=== PATIENT | male | born 1970 | race Asian ===

== ENCOUNTER 2019-05-26 23:52 | Emergency (ER) | payer SELFPAY ==
[~2019-05-26] VITALS: Ht 170.2 cm; Wt 77.1 kg
[~2019-05-26 23:52] MED LIST: AMLODIPINE BES2.5 MG ORAL; LOSARTAN-HCTZ1 EACH ORAL; TRICOR145 MG ORAL
[2019-05-26] MEDS ORDERED: ASPIR 8181 MG ORAL (23:58)
[2019-05-27] VITALS: BP 140/95
--- NOTE | 2019-05-27 | NUR ---
ED Nurse Note: Pt aaox4, vss, with no acute distress. Pt cooperative and well groomed. Pt ambulated to ED c/o right arm forearm pain when he moves it. Possible dislocation x 2300. last meal 1999.
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
[2019-05-27] MEDS ORDERED: HYDROCODON-ACE1 EA15 ORAL (00:28)
[2019-05-27] MEDS ORDERED: IBUPROFEN600 MG ORAL (00:28)
[2019-05-27] MEDS ORDERED: HYDROcodone/Acetamin 5/325 tab ORAL ONE (00:30)
[2019-05-27 00:45] VITALS: BP 140/95
--- NOTE | 2019-05-27 00:45 | NUR ---
ER DISCHARGE NOTE: Patient is cleared to be discharged per ERMD, pt is aox4, on room air, with stable vital signs. pt was given dc and prescription instructions, pt was able to verbalize understanding, pt id band removed without complications. pt is able to ambulate with steady gait. pt took all belongings. Pt states pain is 0/10. Pt placed in Sugar-tong splint upon discharge.
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
== END 2019-05-27 00:45 | disposition home or self-care (01) ==
LOC: EMR 05-27 00:28
DX: S52.591A Other fractures of lower end of right radius, initial encounter for closed fracture (principal); E78.00 Pure hypercholesterolemia, unspecified; I10 Essential (primary) hypertension; W03.XXXA Other fall on same level due to collision with another person, initial encounter; Y93.89 Activity, other specified; Y92.89 Other specified places as the place of occurrence of the external cause
CPT/HCPCS: 29125; 99283

== ENCOUNTER 2020-01-05 22:35 | Emergency (ER) | payer MEDICAID, OTHER ==
[~2020-01-05] VITALS: Ht 170.2 cm; Wt 79.4 kg
[~2020-01-05 22:35] MED LIST changes: +ASPIR 8181 MG ORAL; +HYDROCODON-ACE1 EA15 ORAL; +IBUPROFEN600 MG ORAL
[2020-01-05] MEDS ORDERED: XARELTO10 MG ORAL (22:52)
[2020-01-05] MEDS ORDERED: ATORVASTATIN CA20 MG ORAL (22:52)
[2020-01-05] MEDS ORDERED: AMIODARONE HCL400 M1 ORAL (22:52)
[2020-01-05] MEDS ORDERED: AMLODIPINE BESYL5 MG ORAL (22:52)
[2020-01-05] MEDS ORDERED: METOPROLOL SUCC50 MG ORAL (22:52)
[2020-01-05] MEDS ORDERED: NITRO0.4 SL (22:52)
[2020-01-05 22:58] VITALS: BP 175/111
--- NOTE | 2020-01-05 22:58 | Emergency Room Report ---
History of Present Illness General Chief Complaint: Chest Pain Source: Patient Present Illness HPI Patient presents with chief complaint of chest pain. He was sitting down to watch TV with his family. He felt pressure throughout his chest. He also helped both of his hands were sweaty at that time. He tried 2 sublingual nitroglycerin at that time with some relief. He felt no palpitations. The patient is never had a treadmill. Patient was recently evaluated with atrial fibrillation. He was started on amiodarone and a beta-payal. Also he was placed on Xarelto. 2 subsequent EKGs have revealed normal sinus rhythm. Risk factors for coronary artery disease: High cholesterol, hypertension. Patient denies diabetes, family history, smoking or obesity. The patient does drink alcohol daily. He drinks 3 glasses of scotch daily. He gets tested every 2weeks COVID-19. He got results just yesterday for an antibody test that was negative. No fevers, chills, sore throat, nausea, vomiting, diarrhea, dysuria, abdominal pain, shortness of breath, joint pain, rashes, depression, anxiety, visual changes, dizziness, headache. Allergies: Coded Allergies: No Known Allergies (Unverified , 10/13/15) COVID-19 Screening Contact w/high risk pt: No Experienced COVID-19 symptoms?: No COVID-19 Testing performed [employer]: Yes COVID-19 Screening: Negative COVID-19 COVID-19 Testing Source: 2 wks ago Patient History Past Medical History: see triage record Pertinent Family History: DM Social History: Reports: alcohol use; Denies: smoking, drug use Social History Narrative , owns a bar in [place] Reviewed Nursing Documentation: PMH: Agreed; PSxH: Agreed Nursing Documentation-PMH Hx Cardiac Problems: Yes - high cholesterol Hx Hypertension: Yes Hx Cancer: No Hx Gastrointestinal Problems: No Hx Neurological Problems: No Review of Systems All Other Systems: negative except mentioned in HPI Physical Exam Vital Signs Date Time Temp Pulse Resp B/P (MAP) Pulse Ox O2 Delivery O2 Flow Rate FiO2 01/05/20 22:40 97.9 79 18 175/111 (132) 99 Room Air Sp02 EP Interpretation: reviewed, normal General Appearance: well appearing, no apparent distress, GCS 15 Head: normocephalic Eyes: bilateral eye normal inspection, bilateral eye PERRL, bilateral eye EOMI ENT: moist mucus membranes Neck: supple Respiratory: lungs clear, normal breath sounds Cardiovascular #1: regular rate, rhythm Cardiovascular #2: 2+ radial (R) Gastrointestinal: normal inspection, normal bowel sounds, non tender, no mass, non-distended Musculoskeletal: back normal, normal range of motion, gait/station normal Neurologic: alert, oriented x3 Psychiatric: mood/affect normal Skin: no rash, warm/dry Medical Decision Making Diagnostic Impression: Primary Impression: Chest pain Qualified Codes: R07.9 - Chest pain, unspecified ER Course Patient presents with chest pain with some relief with nitroglycerin while he is on Xarelto for previous atrial fibrillation. Differential includes unstable angina, pulmonary embolus, reflux esophagitis, acute myocardial infarction amongst others. Evaluation with EKG, chest x-ray and labs. Treatment with aspirin and Pepcid. If pain continues nitroglycerin may be administered also. Although there are many factors that suggest this may be GI in origin the fact that he has 2 risk factors, had relief with nitroglycerin as disconcerting and merits close observation. EKG normal sinus rhythm normal EKG. No injury. Chest x-ray no infiltrates normal heart size. Labs remarkable for normal CBC CMP and negative troponin initially. INR is slightly prolonged as the patient is on Xarelto. Patient is pain-free. Review of results with patient. He is scheduled to be transferred to [facility] [place] for further evaluation and observation. Patient refuses to be transferred to another hospital. He states concern over possible COVID-19 exposure. Risk of explained to patient. He understands this and states he will follow-up with his own physician tomorrow. Patient signed out AGAINST MEDICAL ADVICE. Patient provided with EKG, chest x- ray and labs. Laboratory Tests Test 01/05/20 23:00 White Blood Count 7.1 K/UL (4.8-10.8) Red Blood Count 4.62 M/UL (4.70-6.10) L Hemoglobin 14.6 G/DL (14.2-18.0) Hematocrit 42.5 % (42.0-52.0) Mean Corpuscular Volume 92 FL (80-99) Mean Corpuscular Hemoglobin 31.5 PG (27.0-31.0) H Mean Corpuscular Hemoglobin Concent 34.3 G/DL (32.0-36.0) Red Cell Distribution Width 12.9 % (11.6-14.8) Platelet Count 306 K/UL (150-450) Mean Platelet Volume 6.5 FL (6.5-10.1) Neutrophils (%) (Auto) 51.1 % (45.0-75.0) Lymphocytes (%) (Auto) 34.5 % (20.0-45.0) Monocytes (%) (Auto) 8.2 % (1.0-10.0) Eosinophils (%) (Auto) 4.8 % (0.0-3.0) H Basophils (%) (Auto) 1.4 % (0.0-2.0) Prothrombin Time 14.4 SEC (9.30-11.50) H Prothrombin Time INR 1.3 (0.9-1.1) H Activated Partial Thromboplast Time 44 SEC (23-33) H Sodium Level 140 MMOL/L (136-145) Potassium Level 3.6 MMOL/L (3.5-5.1) Chloride Level 102 MMOL/L (98-107) Carbon Dioxide Level 28 MMOL/L (21-32) Anion Gap 10 mmol/L (5-15) Blood Urea Nitrogen 12 mg/dL (7-18) Creatinine 1.1 MG/DL (0.55-1.30) Estimated Glomerular Filtration Rate > 60 mL/min (>60) Glucose Level 113 MG/DL (74-106) H Calcium Level 8.9 MG/DL (8.5-10.1) Total Bilirubin 0.6 MG/DL (0.2-1.0) Aspartate Amino Transferase (AST) 24 U/L (15-37) Alanine Aminotransferase (ALT) 43 U/L (12-78) Alkaline Phosphatase 109 U/L (46-116) Total Creatine Kinase 111 U/L (26-308) Troponin I 0.000 ng/mL (0.000-0.056) Pro-B-Type Natriuretic Peptide 23 pg/mL (0-125) Total Protein 7.6 G/DL (6.4-8.2) Albumin 4.3 G/DL (3.4-5.0) Globulin 3.3 g/dL Albumin/Globulin Ratio 1.3 (1.0-2.7) Serum Alcohol < 3 mg/dL EKG Diagnostic Results Rate: normal Rhythm: NSR ST Segments: no acute changes Rhythm Strip Diag. Results EP Interpretation: yes Rhythm: NSR, no PVC's, no ectopy Chest X-Ray Diagnostic Results Chest X-Ray Diagnostic Results : Chest X-Ray Ordered: Yes # of Views/Limited/Complete: 1 View Indication: Chest Pain Interpretation: no consolidation, no effusion, no pneumothorax Impression: No acute disease Electronically Signed by: Electronically signed by Toney Rolle MD Last Vital Signs Date Time Temp Pulse Resp B/P (MAP) Pulse Ox O2 Delivery O2 Flow Rate FiO2 01/06/20 00:25 97.6 87 16 168/98 100 Room Air Status: improved Disposition: AGAINST MEDICAL ADVICE Condition: Serious Referrals: NON PHYSICIAN (PCP) Toney Rolle MD Jan 05, 2020 22:57
[2020-01-05] MEDS ORDERED: Aspirin Baby 81mg ORAL ONE (23:00)
[2020-01-05] MEDS ORDERED: Aspirin Baby 81mg ONE (23:02)
[2020-01-05 23:10] LABS: BASOPHILS % (AUTO) 1.4 % (0.0-2.0); EOSINOPHILS % (AUTO) 4.8 % (0.0-3.0); HEMATOCRIT 42.5 % (42.0-52.0); HEMOGLOBIN 14.6 G/DL (14.2-18.0); LYMPHOCYTES % (AUTO) 34.5 % (20.0-45.0); MEAN CORPUSCULAR VOLUME 92 FL (80-99); MONOCYTES % (AUTO) 8.2 % (1.0-10.0); NEUTROPHILS % (AUTO) 51.1 % (45.0-75.0); PLATELET COUNT 306 K/UL (150-450); RED BLOOD COUNT 4.62 M/UL (4.70-6.10); RED CELL DISTRIBUTION WIDTH 12.9 % (11.6-14.8); WHITE BLOOD COUNT 7.1 K/UL (4.8-10.8)
--- NOTE | 2020-01-05 23:11 | Diagnostic Imaging Report ---
EXAM: XR Chest, 1 View CLINICAL HISTORY: CP TECHNIQUE: Frontal view of the chest. COMPARISON: No relevant prior studies available. FINDINGS: Lungs: Unremarkable. No consolidation. Pleural space: Unremarkable. No pneumothorax. Heart: Unremarkable. No cardiomegaly. Mediastinum: Unremarkable. Bones/joints: No acute findings. IMPRESSION: No acute findings
[2020-01-05 23:21] LABS: ANION GAP 10 mmol/L (5-15); BLOOD UREA NITROGEN 12 mg/dL (7-18); CALCIUM 8.9 MG/DL (8.5-10.1); CARBON DIOXIDE 28 MMOL/L (21-32); CHLORIDE 102 MMOL/L (98-107); CREATININE 1.1 MG/DL (0.55-1.30); POTASSIUM 3.6 MMOL/L (3.5-5.1); SODIUM 140 MMOL/L (136-145)
[2020-01-05 23:22] LABS: INR 1.3 (0.9-1.1)
[2020-01-05 23:31] LABS: ALANINE AMINOTRANSFERASE 43 U/L (12-78); ALBUMIN 4.3 G/DL (3.4-5.0); ALBUMIN/GLOBULIN RATIO 1.3 (1.0-2.7); ALKALINE PHOSPHATASE 109 U/L (46-116); ASPARTATE AMINO TRANSFERASE 24 U/L (15-37); BILIRUBIN,TOTAL 0.6 MG/DL (0.2-1.0); CREATINE KINASE 111 U/L (26-308)
[2020-01-06 00:25] VITALS: BP 168/98
== END 2020-01-06 00:25 | disposition left against medical advice (07) ==
LOC: EMR 22:52 → CANBEDREQ 01-06 00:28
DX: R07.9 Chest pain, unspecified (principal); E78.00 Pure hypercholesterolemia, unspecified; I10 Essential (primary) hypertension; Z83.3 Family history of diabetes mellitus; Z72.89 Other problems related to lifestyle
CPT/HCPCS: 36415; 71045; 80053; 82550; 83880; 84484; 85025; 85610; 85730; 93005; 96374; G0480; S0028; Z7502; 99284